=== PATIENT | female | born 1955 | race Caucasian/White ===

== ENCOUNTER → 2016-04-22 | Outpatient (CLI) | payer MEDICARE, BC ==
--- NOTE | 2016-04-22 12:56 | CR ---
EXAMINATION: Cervical spine HISTORY: Pain COMPARISON: 02/10/2012 TECHNIQUE: AP and lateral views FINDINGS: The cervical spinal alignment appears grossly normal. The vertebral body heights appear ma intained. There is fusion of the facets of C2 and C3. Moderate marginal osteophytes are noted most p rominent at C5-C6. Bone mineralization is normal. The prevertebral soft tissues appear normal. IMPRESSION: 1. Mild to moderate degenerative changes without acute findings.
== END ==
LOC: MW.CHIM 09:24
PROVIDERS: ATTEND Internal Medicine
DX: R07.89 Other chest pain (principal)
CPT/HCPCS: 72040; 72040-26; 93005; 99214

== ENCOUNTER → 2016-04-28 | Outpatient (CLI) | payer MEDICARE, BC | LOC: MW.CHIM 08:00 | CPT/HCPCS: 99214 ==

== ENCOUNTER → 2016-05-06 | Outpatient (CLI) | payer MEDICARE, BC ==
--- NOTE | 2016-05-07 08:55 | MR ---
EXAMINATION: MRI cervical spine HISTORY: Pain COMPARISON: Radiographs dated 04/22/2016 TECHNIQUE: Multiplanar and multisequence images obtained of the cervical spine without contrast. FINDINGS: The cervical spinal alignment appears grossly normal. The vertebral body heights appear we ll maintained. There is no abnormal bone marrow signal. The cervical spinal cord signal is normal. A tiny hemangioma at C7. The visualized intracranial components appear normal. The prevertebral soft tissues are within normal limits. C2-C3: Unremarkable. C3-C4: Unremarkable. C4-C5: Small diffuse disc bulge with mild spinal canal stenosis. Mild bilateral neural foraminal jigna nosis. C5-C6: Moderate diffuse disc bulge with [id number] spinal canal stenosis. Moderate bilateral n eural foraminal stenosis accentuated by uncovertebral hypertrophy. C6-C7: Moderate diffuse disc bulge with mild spinal canal stenosis. Mild left neural foraminal steno sis. C7-T1: Unremarkable. IMPRESSION: 1. Multilevel degenerative disc disease demonstrated with individual details above.
== END ==
LOC: MW.MRI 13:46
PROVIDERS: ATTEND Internal Medicine
DX: M54.2 Cervicalgia (principal); M48.02 Spinal stenosis, cervical region
CPT/HCPCS: 72141; 72141-26

== ENCOUNTER → 2016-05-12 | Outpatient (CLI) | payer MEDICARE, BC | LOC: MW.CHIM 08:00 | PROVIDERS: ATTEND Internal Medicine | DX: M99.81 Other biomechanical lesions of cervical region (principal); M54.10 Radiculopathy, site unspecified; M06.9 Rheumatoid arthritis, unspecified | CPT/HCPCS: 99214 ==